=== PATIENT | female | born 1975 | race Caucasian/White ===

== ENCOUNTER → 2018-10-24 11:08 | Outpatient (CLI) | payer OTHER, SELFPAY | PROVIDERS: PCP Internal Medicine Adolescent Medicine; Visit Provider Internal Medicine Cardiovascular Disease | DX: R00.2 Palpitations (principal); R06.00 Dyspnea, unspecified; R06.83 Snoring; R07.9 Chest pain, unspecified; R40.0 Somnolence | CPT/HCPCS: 93270 ==

== ENCOUNTER → 2018-10-29 07:23 | Outpatient (CLI) | payer SELFPAY ==
--- NOTE | 2018-10-29 07:31 | CT_ITS ---
CT heart w calcium score INDICATION: ITS.REASON: cp/dyspnea ORDERING PHYSICIAN: Jerome Marks MD PATIENT AGE: 42 years COMPARISON: None TECHNIQUE: Contrast Used: Oral Contrast: Axial images were obtained. Sagittal and coronal reformatted images are reviewed as well. All CT scans at the facility use one or more dose reduction, viz: automated exposure control, ma/kV adjustment per patient size (including targeted exams where dose is matched to indication, i.e. head), or iterative reconstruction technique. FINDINGS: The coronary artery calcium score is 0. No identifiable calcific atherosclerotic plaque. There are scattered calcified nodules present in the right middle lobe and right upper lobe IMPRESSION: The coronary artery calcium score of 0. No identifiable atherosclerotic plaque, very low cardiovascular disease risk
== END ==
PROVIDERS: PCP Internal Medicine Adolescent Medicine; Visit Provider Internal Medicine Cardiovascular Disease
DX: R00.2 Palpitations (principal); R06.00 Dyspnea, unspecified; R06.83 Snoring; R07.9 Chest pain, unspecified; R40.0 Somnolence
CPT/HCPCS: 75571

== ENCOUNTER → 2018-11-04 15:47 | Outpatient (POV) | payer SELFPAY | PROVIDERS: Visit Provider Dermatology | DX: Z00.00 Encounter for general adult medical examination without abnormal findings (principal) ==

== ENCOUNTER → 2018-11-05 15:30 | Outpatient (CLI) | payer OTHER, SELFPAY | PROVIDERS: PCP Internal Medicine Adolescent Medicine; Visit Provider Internal Medicine Cardiovascular Disease | DX: R06.00 Dyspnea, unspecified (principal); R00.2 Palpitations; R06.83 Snoring; R07.9 Chest pain, unspecified; R40.0 Somnolence | CPT/HCPCS: 95806 ==

== ENCOUNTER → 2018-11-06 07:51 | Outpatient (CLI) | payer OTHER, SELFPAY ==
--- NOTE | 2018-11-06 | CA_ITS ---
APPROVED REPORT Exam: Exercise Treadmill Technologist: garcía thompson, Ht: 5 ft 3 in Wt: 157 lbs BSA: 1.74 m2 HR: 90 bpm Rhythm: NSR Indications: CP< SOB< Palpatations Medical History Medical History: Arrhythmia Medications: OmPERAZOLE,,,,, Allergies: No known drug allergies Stress Test Details Test: David HR Resting HR: 96 bpm Max Heart Rate (APMHR): 180 bpm Max HR Achieved: 170 bpm Target HR (85% APMHR): 153 bpm % of APMHR: 94 Recovery HR: 125 bpm BP Resting BP: 127.0/75.0 mmHg Max BP: 162.0/76.0 mmHg Recovery BP: 123.0/55.0 mmHg ECG Clinical Exercise duration: 09:21 min Highest Stage Achieved: Exercise capacity: 10.1 METs Stress ECG Conclusion Symptoms: No chest pain. Arrhythmias/ectopy: Rare pac. ST-T changes: Motion artifact with mild lateral ST depression at 6:[address] segments at peak HR/exercise. Stress echo images reported separately. Test Summary REST . . . . . . . Standing REST . . . . . . . Sitting REST 05:59 0.0 0.0 96 . 127/ 75 . . Stage 1 01:00 10.0 1.7 117 . . . . Stage 1 02:00 10.0 1.7 117 . . . . Stage 1 03:00 10.0 1.7 120 . 150/ 74 . . Stage 2 01:00 12.0 2.5 128 . . . . Stage 2 02:00 12.0 2.5 137 . . . . Stage 2 03:00 12.0 2.5 141 . 162/ 76 . . Stage 3 01:00 14.0 3.4 160 . . . . Stage 3 02:00 14.0 3.4 . . . . . Stage 3 . . . . . . . Stage held Stage 3 03:00 14.0 3.4 169 . . . . Stage 3 . . . . . . . Stage resumed Stage 3 03:21 14.0 0.0 170 . . . Stop exercise at 09:21 RECOVERY 01:00 0.0 0.0 125 . . . . RECOVERY 02:00 0.0 0.0 114 . . . . RECOVERY 03:00 0.0 0.0 112 . . . . RECOVERY 04:00 0.0 0.0 106 . . . . RECOVERY 05:00 0.0 0.0 106 . 123/ 55 . . RECOVERY 06:00 0.0 0.0 109 . 113/ 59 . . RECOVERY 07:00 0.0 0.0 109 . 113/ 57 . . RECOVERY 07:59 0.0 0.0 107 . 113/ 57 . . Electronically signed by : Jose M Dodd, 11/19/2018 11:44:39
--- NOTE | 2018-11-06 07:52 | CA_ITS ---
APPROVED REPORT Car Dumper Operator: Zaida Natarajan CARI Exercise stress echo: Indication for the test: Chest pain shortness of breath Procedure: Patient exercised on David protocol 9 minutes, resting heart rate was 90 bpm resting blood pressure 127/75, with exercise maximum heart rate achieved was 170 bpm which is equal to 94% of the maximum corrected heart rate and her blood pressure was 162/76. Test was stopped due to shortness of breath and fatigue patient denied any complaint of chest pain. Patient has good exercise capacity achieved 10.1 mets of workload on treadmill. The blood pressure response to exercise was adequate. Electrocardiogram: Resting electro cardiogram showed sinus rhythm, with exercise there is less than 1.[address] segment depression noted from the baseline EKG. The EKG portion of the exercise stress echo is negative for ischemia. Resting echocardiogram: Shows normal left ventricular size with the left ventricular systolic function, visually estimated ejection fraction of 55% with no regional wall motion abnormality. Stress echocardiogram: With exercise there is increase in contractility of all the segments of the myocardium with hyperdynamic left ventricular systolic response, no segmental wall motion abnormality with exercise seen to indicate ischemic heart disease. Conclusion 1. The EKG portion of the exercise stress echo is negative for ischemia, patient has good exercise capacity achieved 10.1 mets of workload on treadmill, the blood pressure response to exercise was adequate, there was no exercise-induced chest discomfort. 2. No echocardiographic evidence of segmental wall motion abnormality to suggest underlying ischemic heart disease. Preserved left ventricular systolic function. 3. Normal stress echo. Electronically signed by : Jerome Marks, 11/06/2018 14:49:22
== END ==
PROVIDERS: PCP Internal Medicine Adolescent Medicine; Visit Provider Internal Medicine Cardiovascular Disease
DX: R07.9 Chest pain, unspecified (principal); R06.00 Dyspnea, unspecified; R00.2 Palpitations; K21.9 Gastro-esophageal reflux disease without esophagitis; R06.83 Snoring; R40.0 Somnolence
CPT/HCPCS: 93017; 93350

== ENCOUNTER → 2019-01-08 20:07 | Outpatient (CLI) | payer OTHER, SELFPAY | PROVIDERS: PCP Internal Medicine Adolescent Medicine; Visit Provider Internal Medicine Cardiovascular Disease | DX: G47.33 Obstructive sleep apnea (adult) (pediatric) (principal); R40.0 Somnolence | CPT/HCPCS: 95810 ==

== ENCOUNTER → 2019-08-02 09:51 | Outpatient (CLI) | payer OTHER, SELFPAY ==
[2019-08-03 17:26] LABS: Covid-19 Nasal PCR Sendout UK Not Detected
== END ==
PROVIDERS: PCP Internal Medicine Adolescent Medicine; Visit Provider Surgery
DX: Z03.818 Encounter for observation for suspected exposure to other biological agents ruled out (principal)
CPT/HCPCS: U0003

== ENCOUNTER 2019-08-04 06:25 | Day surgery (SDC) | payer OTHER, SELFPAY ==
--- NOTE | 2019-07-30 12:49 | SUR.PREOP ---
07/30/2019 @ 1249--PHONE CALL MADE TO PATIENT. PATIENT UNDERSTANDS THAT LAB WORK AND COVID TESTING NEEDS TO BE COMPLETED 1000 ON 08/02/2019. PATIENT UNDERSTANDS IF LAB WORK AND COVID-19 TESTS ARE NOT COMPLETED BY 12PM ON THAT DATE, THE SURGERY SCHEDULED WILL BE CANCELLED AND RESCHEDULED FOR ANOTHER TIME.
[2019-08-03 11:59] VITALS: BMI 28.3
[2019-08-04 06:44] VITALS: BP 110/70; PULSE 72; RESP 18; TEMP 36.4; O2SAT 100
--- NOTE | 2019-08-04 07:06 | HMH.ANESCL ---
[facility] Anesthesia Checklist - Patient Identification Patient Identification: Arm Band - Structural Data Admitted From: Home Planned Operative Procedure/s: egd Consent for Planned Operative Procedure(s) Verified: Yes Verified Documents: Surgical Consent, History and Physical - NPO Status Verified Time NPO: 00:00 - Additional verifications Anesthesia Reactions: No - Airway Assessment C-Spine Mobility Assessed: Yes (mp2) TMJ Mobility Assessed: Yes Dentition: Good Dentition - Neurological Assessment Level of Consciousness: Awake, Alert - Anesthesia Plan Anesthesia Risk discussed: Yes Anesthesia Plan: Verified ASA Class: II Anesthesia Type: MAC [facility] History I have reviewed the patient's past medical history: Yes Medical History: Reports:: Gastroesophageal Reflux Disease(GERD), MRSA (c section incision), Palpitations Denies:: Cancer, Diabetes Mellitus Type 1, Diabetes Mellitus Type 2, Seizures *Have you ever received a pneumonia vaccine?: No *Have you received a flu vaccine this season?: Yes Anesthesia experience/problems:: nac Other Surgeries: Yes: Colonoscopy, , EGD, Tubal Ligation Amputation: No Fractures: No - *Social History Educational Level: Completed College Smoking Status: Never smoker Alcohol Intake: never Substance Use Type: denies use *Occupational Status:: employed Housing: house Household Members: spouse *Travel in the last 8 weeks: None Family Hx:: Heart Attack, Cancer
[2019-08-04 07:21] LABS: Urine Pregnancy, HCG Qual. Negative (Negative)
[2019-08-04 07:31] VITALS: O2SAT 100
[2019-08-04 07:45] VITALS: BP 106/63; PULSE 77; RESP 18; TEMP 36.1; O2SAT 99
--- NOTE | 2019-08-04 07:46 | HMH.GSHP ---
HPI HPI: Patient is a very pleasant 43-year-old female who presents back to the office for follow-up after her urgent upper endoscopy which was done on 04/08/2019 for esophageal obstruction/food impaction. 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 She does have a history of GERD and has had previous upper endoscopy at outside facility but never at this institution. She was found to have impacted meat during upper endoscopy done on 04/08/2019. Following that she was instructed to take yvke-inl-oyesehz proton pump inhibitors. She has had no symptomatology since then. Plan was for follow-up definitive diagnostic EGD. [facility] History I have reviewed the patient's past medical history: Yes Medical History: Reports:: Gastroesophageal Reflux Disease(GERD), MRSA (c section incision), Palpitations Denies:: Cancer, Diabetes Mellitus Type 1, Diabetes Mellitus Type 2, Seizures *Have you ever received a pneumonia vaccine?: No *Have you received a flu vaccine this season?: Yes Anesthesia experience/problems:: nac Other Surgeries: Yes: Colonoscopy, , EGD, Tubal Ligation Amputation: No Fractures: No - *Social History Educational Level: Completed College Smoking Status: Never smoker Alcohol Intake: never Substance Use Type: denies use *Occupational Status:: employed Housing: house Household Members: spouse *Travel in the last 8 weeks: None Family Hx:: Heart Attack, Cancer Review of Systems - Review of Systems Review of systems:: pertinent systems reviewed and negative unless documented below Meds Home Medications Medication Instructions Recorded Confirmed Type Omeprazole Magnesium [Prilosec Otc 20 mg PO DAILY 08/03/19 08/04/19 History 20mg Tab] Allergies Allergy/AdvReac Type Severity Reaction Status Date / Time No Known Allergies Allergy Verified 08/04/19 06:42 Exam Vital signs and Labs for Last 24 Hours: Temp Pulse Resp BP Pulse Ox 97.6 F 72 18 110/70 100 08/04/19 06:44 08/04/19 06:44 08/04/19 06:44 08/04/19 06:44 08/04/19 06:44 Laboratory Results - last 24 hr 08/04/19 : Urine HCG, Qual Negative I & O for Last 24 hours: Intake & Output 08/01/19 08/02/19 08/03/19 08/04/19 11:59 11:59 11:59 11:59 Weight 160 lb - *Routine HEENT Exam Head: Present: normocephalic Eye: Present: EOMI, PERRL ENT: Present: mucous membranes moist - *Routine Neck Exam Present: supple. Absent: lymphadenopathy - *Routine Respiratory Exam Present: CTA bilaterally - *Routine Cardiovascular Exam Present: RRR - *Routine Abdominal Exam Present: soft, normoactive bowel sounds. Absent: tenderness - *Routine Extremities Exam Absent: cyanosis, clubbing, edema - *Routine Skin Exam Present: warm. Absent: rash - *Routine Neurological Exam Present: alert, oriented X3 Results - Results Lab Results Last 24 Hours:: Laboratory Results - last 24 hr 08/04/19 : Urine HCG, Qual Negative Assessment and Plan - Assessment and plan all Dx Assessment and Plan for all problems:: Plan for follow-up upper endoscopy with possible dilatation and biopsies
--- NOTE | 2019-08-04 07:47 | HMH.SCOPE ---
- Procedure: Date: 08/04/19 Procedure Performed:: Esophagogastroduodenoscopy with dilatation to 20 mm and biopsies Indications:: Patient is a very pleasant 43-year-old female who presents back to the office for follow-up after her urgent upper endoscopy which was done on 04/08/2019 for esophageal obstruction/food impaction. 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 She does have a history of GERD and has had previous upper endoscopy at outside facility but never at this institution. She was found to have impacted meat during upper endoscopy done on 04/08/2019. Following that she was instructed to take [id number]-wrddqzh proton pump inhibitors. She has had no symptomatology since then. Plan was for follow-up definitive diagnostic EGD. Performing Provider:: Edward Martinez MD Referring Provider:: None Sedation:: Propofol Procedure:: Patient was taken to endoscopy procedure room. She was positioned in a lateral decubitus position. Adequate intravenous sedation was achieved with anesthesia titration of propofol. Olympus endoscope was inserted via the oropharynx. The distal esophagus she did have a small Schatzki's ring. Stomach was cannulated and insufflated. Retroflexion revealed a small sliding hiatal hernia. There were a few fundic gland polyps. She had some minor focal gastritis in the mid body of the stomach. Pylorus was traversed. Duodenum was unremarkable. Endoscope was withdrawn into the stomach and gastric antral mucosal biopsy was obtained for CLOtest for H. pylori. Biopsy was obtained of the focal gastritis. Biopsies were obtained at the gastroesophageal junction at the region of the Schatzki's ring. Following this the mild Schatzki's ring was dilated sequentially to 18 mm, then 19 mm, then 20 mm using the pneumatic dilator. Stomach was desufflated and the endoscope was withdrawn. Findings:: Minor Schatzki's ring Sliding hiatal hernia Focal nonerosive gastritis Recommendations:: Plan to check the status of H. pylori and treat if appropriate. Otherwise would maintain H2 blockers versus proton pump inhibitors. Complications:: None immediately apparent Estimated blood obtained (mL): 2
[2019-08-04 07:55] VITALS: BP 105/71; PULSE 82; RESP 18; TEMP 36.1; O2SAT 100
[2019-08-04 08:05] VITALS: BP 101/64; PULSE 80; RESP 18; TEMP 36.1; O2SAT 100
[2019-08-04 08:15] VITALS: BP 112/56; PULSE 79; RESP 18; TEMP 36.1; O2SAT 100
== END 2019-08-04 08:15 | disposition home or self-care (01) ==
LOC: OUTP 06:26
PROVIDERS: PCP Internal Medicine Adolescent Medicine; Visit Provider Surgery
PROC: 0DJ08ZZ Inspection of Upper Intestinal Tract, Via Natural or Artificial Opening Endoscopic (ICD-10-PCS; CPT 43235; principal; 2019-08-04 07:30)
DX: K21.9 Gastro-esophageal reflux disease without esophagitis (principal); K22.2 Esophageal obstruction; K44.9 Diaphragmatic hernia without obstruction or gangrene; K29.60 Other gastritis without bleeding
CPT/HCPCS: 43239; 43249; 81025; 87339; C1726

== ENCOUNTER → 2019-10-28 16:28 | Outpatient (CLI) | payer OTHER, SELFPAY ==
[2019-10-28 18:49] LABS: Free Thyroxine Index 2.3 ug/dL (5.93-13.13); T4 (Thyroxine) 6.9 ug/dl (5.53-11.0); Triiodothryronine (T3) Uptake 33 % (23.5-40.5)
[2019-10-28 19:03] LABS: Thyroid Stimulating Hormone 0.93 uIU/mL (0.465-4.68)
== END ==
PROVIDERS: Visit Provider Internal Medicine Adolescent Medicine
DX: E04.1 Nontoxic single thyroid nodule (principal)
CPT/HCPCS: 36415; 84436; 84443; 84479

== ENCOUNTER → 2019-11-06 07:45 | Outpatient (CLI) | payer OTHER, SELFPAY ==
--- NOTE | 2019-11-06 08:10 | US_ITS ---
PROCEDURE: US THYROID CLINICAL INDICATION: THYROID NODULE COMPARISON: No exams were available for comparison FINDINGS: Right lobe: The right lobe measures 1.8 x 4.6 x 1.8 cm. There is a somewhat spongy form hypoechoic nodule lower pole measuring 1.3 by 1.3 by 1.2 cm. This nodule is a wider than high with rather smooth well-defined borders and with no calcifications. It is somewhat vascular. The remainder of the right lobe shows homogeneous echogenicity. This is a Ti rads 2. Left lobe: The left lobe measures 1.1 x 4.3 x 1.6 cm. The left lobe shows homogeneous echogenicity. There are no cystic or solid nodule seen. Isthmus: The isthmus measures 0.32 cm. Additional findings: IMPRESSION: Normal-sized gland with dominant somewhat hypoechoic noduleTirads 2 Dictated by: Dr. Venkat Alfonso MD 11/06/2019 10:05 Dr. Venkat Alfonso MD in [place] 11/06/2019 10:05
== END ==
PROVIDERS: PCP Internal Medicine Adolescent Medicine; Visit Provider Internal Medicine Adolescent Medicine
DX: E04.1 Nontoxic single thyroid nodule (principal)
CPT/HCPCS: 76536

== ENCOUNTER 2019-12-02 21:30 | Emergency (ER) | payer OTHER, SELFPAY ==
[2019-12-02 21:41] VITALS: BMI 28.5
[2019-12-02 21:42] VITALS: BP 137/77; PULSE 107; RESP 14; TEMP 36.8; O2SAT 100; BMI 28.5
--- NOTE | 2019-12-02 21:42 | XR_ITS ---
PROCEDURE: XR KNEE LT 3V CLINICAL INDICATION: fall Posttraumatic pain COMPARISON: No exams were available for comparison FINDINGS: No fracture or dislocation. No lytic or blastic change. There is normal mineralization. The joint spaces are well-preserved. No significant degenerative/arthritic changes. No erosive changes evident. Other findings:There is a prominent suprapatellar effusion IMPRESSION: Knee joint effusion otherwise negative Dictated by: John Gibbons MD 12/03/2019 05:42 John Gibbons MD in [place] 12/03/2019 05:42
[2019-12-02 22:18] VITALS: BP 122/70; PULSE 89; RESP 18; O2SAT 99
--- NOTE | 2019-12-02 23:31 | HMH.EDLOEX ---
ED Disposition Clinical Impression: Sprain of left knee Qualifiers: Encounter type: initial encounter Involved ligament of knee: unspecified ligament Qualified Code(s): S83.92XA - Sprain of unspecified site of left knee, initial encounter Disposition: Home, Self-Care Condition on Discharge: Fair Instructions: Sprain Additional Instructions: X rays of the knee showed no acute findings; You have abrasion of both knees; plan is to provide you with crutches, a tetanus shot, Toradol and Depo-Medrol here and also an Phuc bandage; will keep you off work for couple of days; Please follow-up with orthopedics Prescriptions: Ibuprofen [Motrin 600mg Tablet] 600 mg PO Q6HP PRN #20 tab PRN Reason: Mild To Moderate Pain Transmission Status: Pending to [facility] Diclofenac Sodium [Voltaren 100gm Topical Gel] 1 applicatio TP Q4-6H PRN #100 gm PRN Reason: Moderate Pain Transmission Status: Pending to [facility] Referrals: Nasir rFeire MD [Primary Care Provider] - Forms: Work/School Release Time of Disposition: 23:46 - Critical Care Critical Care Time: No Attestation: On 12/02/19, the high probability of a clinically significant, sudden or life threatening deterioration of the following system(s) required my full and direct attention, intervention and personal management. The time I documented below is in addition to time spent performing reported procedures but includes the following listed in this critical care notation. Medical Decision Making - Medical Records Medical records reviewed: Yes: I reviewed the patient's medical records. 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 Patient reports left knee pain. The knee showed no acute findings she does have a an abrasion of both knees; plan is to provide her with crutches, a tetanus shot, Toradol and Depo-Medrol here and also an Phuc bandage; will keep her off work for couple of days advised to follow-up with orthopedics - Brian Inquiry Pt receiving controlled substance: No Vital Signs: 12/02/19 21:42 12/02/19 22:18 Temperature 98.3 F Temperature Source Oral Pulse Rate [Right Brachial] 107 H 89 Respiratory Rate 14 18 Blood Pressure [Right Arm] 137/77 122/70 Blood Pressure Mean [Right Arm] 97 87 Blood Pressure Source [Right Arm] Automatic Cuff Blood Pressure Position [Right Arm] Sitting 02 Sat by Pulse Oximetry 100 99 Oxygen Delivery Method Room Air Orders (Tests/Meds): ORDERS Category Date Time Status Knee XR left 3 views [XR knee LT 3V] Stat Exams 12/02/19 21:42 Taken - Radiology Data #1 Image(s): Knee Image Reviewed: Yes I reviewed the patient's radiology image Preliminary Findings: Normal/NAD No acute findings of the left knee is seen Lower Extremity Injury HPI - General Chief Complaint: Extremity Injury, Lower Stated Complaint: O [id number] fell injured L Knee Time Seen by Provider: 12/02/19 23:15 Mode of Arrival: Wheelchair Source of Information: Patient Limitations: No Limitations Description of Symptoms (Recalled from ER Triage Doc. 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 Patient reports left knee pain. - History of Present Illness HPI Narrative: Patient reports she was cleaning when she triped and landed on all fours on concrete. Patient reports left knee pain. MD complaint: knee injury Onset (ago): hour(s) Injury: Left: knee Type of Injury: other Place: home Severity: mild Severity scale (1-10): 2 Relieving factors: rest Exacerbating factors: movement Context: fall - Related Data Home Medications Medication Instructions Recorded Confirmed Omeprazole Magnesium [Prilosec Otc 20 mg PO DAILY 08/03/19 11/23/19 20mg Tab] albuterol sulfate 90 mcg/actuation INHALATION 11/23/19 11/23/19 aerosol inhaler Previous Rx's Medication Instructions Recorded Diclofenac Sodium [Voltare
[2019-12-02 23:41] VITALS: BP 135/83; PULSE 84; RESP 16; TEMP 36.8; O2SAT 100
== END 2019-12-03 00:03 | disposition home or self-care (01) ==
PROVIDERS: Emergency Provider Emergency Medicine; PCP Internal Medicine Adolescent Medicine
DX: S83.92XA Sprain of unspecified site of left knee, initial encounter (principal); W01.0XXA Fall on same level from slipping, tripping and stumbling without subsequent striking against object, initial encounter; Y92.89 Other specified places as the place of occurrence of the external cause; Z23 Encounter for immunization; K21.9 Gastro-esophageal reflux disease without esophagitis
CPT/HCPCS: 73562; 90471; 90714; 96372; 99283; J1040

== ENCOUNTER → 2020-02-23 12:41 | Outpatient (CLI) | payer OTHER, SELFPAY ==
--- NOTE | 2020-02-23 13:01 | US_ITS ---
PROCEDURE: US THYROID CLINICAL INDICATION: thyroid nodule follow up-hypervascular nodule still seen right lower lobe COMPARISON: US US THYROID from 11/06/2019 FINDINGS: Right lobe: 1.6cm x 4.4cm x 1.5cm Left lobe: 1.0cm x 4.2cm x 1.9cm Isthmus: Unremarkable Additional findings: There is a persistent spongiform nodule in the lower pole on the right measuring 1.5 x 1.1 cm not significantly changed which is a TR level 2 nodule. A small hypoechoic nodules present in the mid aspect of the right lobe unchanged. IMPRESSION: No change right-sided thyroid nodules Dictated by: John Gibbons MD 02/24/2020 12:30 John Gibbons MD in [place] 02/24/2020 12:30
[2020-02-23 16:16] LABS: Free T4 (Free Thyroxine) 1.01 ng/dl (0.78-2.19)
[2020-02-23 16:29] LABS: Thyroid Stimulating Hormone 1.79 uIU/mL (0.465-4.68)
[2020-02-26 20:14] LABS: Calcitonin <2.0 pg/mL (0.0-5.0)
== END ==
PROVIDERS: PCP Internal Medicine Adolescent Medicine; Visit Provider Otolaryngology
DX: E04.1 Nontoxic single thyroid nodule (principal)
CPT/HCPCS: 36415; 76536; 82308; 84439; 84443

== ENCOUNTER → 2020-02-24 15:54 | Outpatient (CLI) | payer OTHER, SELFPAY ==
--- NOTE | 2020-02-24 15:55 | MM_ITS ---
PROCEDURE: MM DIG SCREENING MAMM BI W/CAD Referring Doctor: Nasir Freire Patient Age:44Y CLINICAL INDICATION: SCREENING No hormones. No new complaints. Noncontributory family history the COMPARISON: MG MY Digital Screen BILAT from 05/16/2017 outside studies from [facility] TECHNIQUE: Standard CC and MLO images were obtained. R2 CAD reviewed. Bilateral digital breast tomosynthesis included.. Additional axillary CC views both breast included FINDINGS: CAD computer review highlights no areas of concern. The the the the the the the she Patchy moderately heterogeneous fibroglandular elements most evident distributed towards upper-outer quadrant both breast, again seen with no significant new findings. No new dominant nor suspicious density/mass Right breast no new findings of concern Left breast no new findings of concern IMPRESSION: Stable bilateral mammogram. No new areas of concern. Heterogeneous moderately dense breast pattern is similar to outside studies. Follow-up 1 year adequate BI-RAD Category: 2 Benign Finding(s) t FOLLOW-UP: 1YR 1 Year Follow-up the (A letter has been sent to the patient regarding results of the study.) Dictated by: Ata Brody MD 03/03/2020 12:48 Ata Brody MD in [place] 03/03/2020 12:48
== END ==
PROVIDERS: PCP Internal Medicine Adolescent Medicine; Visit Provider Internal Medicine Adolescent Medicine
DX: Z12.31 Encounter for screening mammogram for malignant neoplasm of breast (principal)
CPT/HCPCS: 77063; 77067

== ENCOUNTER → 2020-06-22 12:50 | Outpatient (CLI) | payer OTHER, SELFPAY ==
--- NOTE | 2020-06-22 12:59 | US_ITS ---
PROCEDURE: US THYROID CLINICAL INDICATION: nodule COMPARISON: US US THYROID from 11/06/2019 US US THYROID from 02/23/2020 FINDINGS: Right lobe: 4.5 x 1.4 x 1.4 centimeters Left lobe: 4 x 1 x 1.7 centimeters Isthmus: 0.3 centimeters Additional findings: Nodule is noted in the right lobe of thyroid gland measuring 0.3 centimeters, unchanged. Hypoechoic nodule in the right lobe measuring 1.3 times 1.4 x 1.1 centimeters noted, demonstrates well-defined margins and vascularity. No intersegmental interval change compared to prior study. No nodules are identified in the left lobe. IMPRESSION: Right thyroid nodule measuring 1.3 x 1.4 centimeters, demonstrates no significant interval change. Follow-up in 6-12 months is recommended. Dictated by: Barbara Rocha 06/23/2020 11:27 Barbara Rocha in [place] 06/23/2020 11:27
== END ==
PROVIDERS: PCP Internal Medicine Adolescent Medicine; Visit Provider Otolaryngology
DX: E04.1 Nontoxic single thyroid nodule (principal); E04.9 Nontoxic goiter, unspecified
CPT/HCPCS: 76536

== ENCOUNTER → 2021-01-06 13:48 | Outpatient (CLI) | payer OTHER, SELFPAY ==
--- NOTE | 2021-01-06 14:04 | US_ITS ---
PROCEDURE: US THYROID CLINICAL INDICATION: thyroid nodule COMPARISON: US US THYROID from 11/06/2019 US US THYROID from 02/23/2020 US US THYROID from 06/22/2020 FINDINGS: Right lobe: The right lobe is 4.6 x 1.6 x 1.7 cm. There is a dominant spongiform nodule in the right lobe at 1.4 x 1.3 cm not significantly changed TR level 2. A 3 mm hypoechoic nodules present in the upper pole unchanged. Left lobe: 4.1 x 1 x 1.6 cm. Homogeneous echogenicity with no distinct nodule. Isthmus: Unremarkable Additional findings: IMPRESSION: Stable ultrasound appearance of the dominant nodule on the right having a spongiform appearance. This is stable dating back to 11/06/2019. Annual follow-up suggested Dictated by: John Gibbons MD 01/06/2021 16:29 John Gibbons MD in [place] 01/06/2021 16:29
== END ==
PROVIDERS: PCP Internal Medicine Adolescent Medicine; Visit Provider Otolaryngology
DX: E04.1 Nontoxic single thyroid nodule (principal)
CPT/HCPCS: 76536

== ENCOUNTER → 2021-03-21 16:05 | Outpatient (CLI) | payer OTHER, SELFPAY ==
--- NOTE | 2021-03-21 16:14 | MM_ITS ---
PROCEDURE INFORMATION: Exam: MG Bilateral Screening 3D Mammography Exam date and time: 03/21/2021 4:14 PM Age: 45 years old Clinical indication: Screening mammogram TECHNIQUE: Imaging protocol: Bilateral screening tomosynthesis and 2D mammography including computer-aided detection (CAD) when performed. COMPARISON: 1. MG MM DIG SCREENING MAMM BI W/CAD 02/24/2020 3:56 PM 2. MG MY Digital Screen BILAT 05/16/2017 2:19 PM FINDINGS: MAMMOGRAPHY: Breast composition: The breast tissue is heterogeneously dense, which may obscure small masses. Mass: None. Architectural distortion: No new or suspicious architectural distortion. Calcifications: No new or suspicious calcifications are present Asymmetric density: No new or suspicious asymmetric density is present Skin thickening: None. Axillary adenopathy: None. IMPRESSION: No mammographic evidence of malignancy. Recommend annual screening mammography unless otherwise clinically indicated. ASSESSMENT: BI-RADS category 1: Negative
== END ==
PROVIDERS: PCP Internal Medicine Adolescent Medicine; Visit Provider Internal Medicine Adolescent Medicine
DX: Z12.31 Encounter for screening mammogram for malignant neoplasm of breast (principal)
CPT/HCPCS: 77063; 77067

== ENCOUNTER → 2022-04-05 16:14 | Outpatient (CLI) | payer OTHER, BC, SELFPAY ==
--- NOTE | 2022-04-05 16:18 | MM_ITS ---
PROCEDURE INFORMATION: Exam: MG Bilateral Screening 3D Mammography Exam date and time: 04/05/2022 4:08 PM Age: 46 years old Clinical indication: Screening. No family history of breast cancer. TECHNIQUE: Imaging protocol: Bilateral Screening tomosynthesis and 2D mammography including computer-aided detection (CAD) when performed. COMPARISON: 1. MG MM DIG SCREENING MAMM BI W/CAD 03/21/2021 4:33 PM 2. MG MM DIG SCREENING MAMM BI W/CAD 02/24/2020 3:56 PM 3. MG MY Digital Screen BILAT 05/16/2017 2:19 PM FINDINGS: MAMMOGRAPHY: Breast composition: The breasts are heterogeneously dense, which may obscure small masses. Mass: No suspicious mass. Architectural distortion: None. Calcifications: No suspicious calcifications. Asymmetric density: None. Skin thickening: None. Axillary adenopathy: None. IMPRESSION: No mammographic evidence of malignancy. Annual screening is recommended unless otherwise clinically indicated. ASSESSMENT: BI-RADS Category 1: Negative
== END ==
PROVIDERS: PCP Internal Medicine Adolescent Medicine; Visit Provider Internal Medicine Adolescent Medicine
DX: Z12.31 Encounter for screening mammogram for malignant neoplasm of breast (principal)
CPT/HCPCS: 77063; 77067

== ENCOUNTER → 2022-05-11 14:13 | Outpatient (CLI) | payer OTHER, BC, SELFPAY ==
--- NOTE | 2022-05-11 14:56 | US_ITS ---
FINAL REPORT TECHNIQUE: Sonographic images of the thyroid gland were obtained in the longitudinal and transverse planes. CLINICAL HISTORY: nodule COMPARISON: 01/06/2021 FINDINGS: The right lobe measures 1.4 x 5.0 x 1.5 cm cm. There are several nodules in the right lobe. There is a mixed cystic and solid lower pole nodule measuring 1.4 cm which is unchanged. There is a smaller upper pole nodule measuring 4 mm and was 3 mm, unchanged. The left lobe measures 1.3 x 4.6 x 1.3 cm. There is a tiny colloid cyst. The isthmus measures 3 mm. This is normal. IMPRESSION: Stable bilateral thyroid nodules. Reviewed, Interpreted and Dictated by Ama Saxena MD Transcribed by Dorys Dunn Authenticated and . [facility]
[2022-05-11 16:29] LABS: Free T4 (Free Thyroxine) 0.98 ng/dl (0.78-2.19)
[2022-05-11 16:43] LABS: Thyroid Stimulating Hormone 0.73 uIU/mL (0.465-4.68)
== END ==
PROVIDERS: PCP Internal Medicine Adolescent Medicine; Visit Provider Otolaryngology
DX: E04.1 Nontoxic single thyroid nodule (principal)
CPT/HCPCS: 36415; 76536; 84439; 84443

== ENCOUNTER 2023-04-08 16:05 | Outpatient (CLI) | payer OTHER, SELFPAY ==
--- NOTE | 2023-04-08 16:05 | MM_ITS ---
PROCEDURE INFORMATION: Exam: MG Bilateral Screening 3D Mammography Exam date and time: 04/08/2023 3:52 PM Age: 47 years old Clinical indication: Screening mammogram TECHNIQUE: Imaging protocol: Bilateral Screening tomosynthesis and 2D mammography including computer-aided detection (CAD) when performed. COMPARISON: 1. MG MM DIG SCREENING MAMM BI W/CAD 04/05/2022 4:08 PM 2. MG MM DIG SCREENING MAMM BI W/CAD 03/21/2021 4:33 PM 3. MG MM DIG SCREENING MAMM BI W/CAD 02/24/2020 3:56 PM 4. MG MY Digital Screen BILAT 05/16/2017 2:19 PM FINDINGS: MAMMOGRAPHY: Breast composition: There are scattered areas of fibroglandular density. Mass: None. Architectural distortion: No new or suspicious architectural distortion. Calcifications: No new or suspicious calcifications are present Asymmetric density: No new or suspicious asymmetric density is present Skin thickening: None. Axillary adenopathy: None. IMPRESSION: No mammographic evidence of malignancy. Recommend annual screening mammography unless otherwise clinically indicated. ASSESSMENT: BI-RADS category 1: Negative
== END 2023-04-08 23:59 ==
LOC: RAD 16:05
PROVIDERS: PCP Family Medicine; Visit Provider Family Medicine
DX: Z12.39 Encounter for other screening for malignant neoplasm of breast (principal)
CPT/HCPCS: 77063; 77067

== ENCOUNTER 2023-07-08 08:32 | Outpatient (CLI) | payer OTHER, SELFPAY ==
--- NOTE | 2023-07-08 08:32 | US_ITS ---
FINAL REPORT CLINICAL HISTORY: RUQ pain FINDINGS: ULTRASOUND RIGHT UPPER QUADRANT Sonographic imaging of the right upper quadrant was obtained. The pancreas is partially obscured. The liver is unremarkable. There are multiple echogenic shadowing gallstones in the gallbladder. There is no gallbladder wall thickening. There is no biliary ductal dilatation. The common duct is normal at 4 mm. There are benign appearing cysts in the right kidney measuring up to 1.5 cm. IMPRESSION: Gallstones in the gallbladder. Benign appearing cysts in the right kidney. Reviewed, Interpreted and Dictated by Hank Eden MD Transcribed by Justina Rangel Authenticated and [facility]
== END 2023-07-08 23:59 | disposition home or self-care (01) ==
LOC: RAD 08:32
PROVIDERS: PCP Family Medicine; Visit Provider Surgery
DX: R10.11 Right upper quadrant pain (principal)
CPT/HCPCS: 76705

== ENCOUNTER 2023-08-16 09:23 | Day surgery (SDC) | payer OTHER, SELFPAY ==
[2023-08-13 14:09] VITALS: BMI 29.4
[2023-08-16] VITALS (11 sets, daily range): BP systolic 106–129; BP diastolic 60–77; PULSE 82–99; RESP 16–18; TEMP 36.3–36.6; O2SAT 97–100; BMI 29.4
[2023-08-16] MEDS: LACTATED RINGERS 1000ML 1,000 ML 25 ML IV (09:50)
--- NOTE | 2023-08-16 11:25 | EXP.GEN.HP ---
HPI HPI HPI: Patient presents for EGD & colonoscopy. She is a pleasant 47-year-old female whom I had seen in the past after she had esophageal obstruction secondary to food impaction requiring urgent endoscopy. This was on 04/08/2019. I did do a follow-up EGD on 08/04/2019 which revealed minor Schatzki's ring which was dilated sequentially using the TTS balloon dilator to 20 mm. She states that over approximately the past year she has had some symptoms similar to before. She does describe substernal pain which she feels is likely consistent with esophageal spasms occurring after eating. She usually within several minutes. She often has to regurgitate saliva. She does state that she had checked an ultrasound and noted that she had gallstones. Of note, she has a family history of colon cancer in her father who was in his 50s when diagnosed. She has not had a colonoscopy for at least [address] [facility] Disclaimer: The information contained in this section may have been updated after the patient was seen, as this information can be updated by other users. Medical History Mild Acid Reflux Hemorrhoids Thyroid Nodule Sprain of left knee Esophageal foreign body URI (upper respiratory infection) Somnolence, daytime Palpitations Dyspnea Snoring Chest pain Surgical History History of colonoscopy History of esophagogastroduodenoscopy (EGD) History of tubal ligation Family History Father Cancer Stroke Hypertension Hyperlipidemia Mother Stroke Hypertension Hyperlipidemia Social History Smoking Status: Never smoker alcohol intake: never substance use type: denies use current occupational status: employed Travel in the last 8 weeks: None household members: spouse housing: house current occupation: [employer] current occupational exposures/hazards: No caffeine: Yes Meds Home Medications and Allergies Home Medications Medication Instructions Recorded Confirmed Type No Known Home Medications 08/16/23 08/16/23 History New Prescriptions to Start Prescriptions: Allergies Allergy/AdvReac Type Severity Reaction Status Date / Time No Known Allergies Allergy Verified 08/16/23 09:38 Exam Data for Last 24 hours Vital signs and Labs for Last 24 Hours: Temp Pulse Resp BP Pulse Ox O2 Del Method 97.3 F L 99 H 18 123/77 100 Room Air 08/16/23 09:43 08/16/23 09:43 08/16/23 09:43 08/16/23 09:43 08/16/23 09:43 08/16/23 09:43 I & O for Last 24 hours: Intake & Output 08/13/23 08/14/23 08/15/23 08/16/23 11:59 11:59 11:59 11:59 Weight 166 lb 166 lb Constitutional Constitutional: no acute distress *Routine HEENT Exam Head: Present normocephalic Eye: Present EOMI and PERRL ENT: Present mucous membranes moist *Routine Neck Exam Neck: Present supple; Absent lymphadenopathy *Routine Respiratory Exam Respiratory: Present CTA bilaterally *Routine Cardiovascular Exam Cardiovascular: Present RRR *Routine Abdominal Exam Abdominal: Present soft and normoactive bowel sounds; Absent tenderness *Routine Rectal Exam Rectal:: deferred *Routine Genitalia Exam Genitalia:: deferred *Routine Extremities Exam Extremities: Absent cyanosis, clubbing or edema *Routine Skin Exam Skin: Present warm; Absent rash *Routine Neurological Exam Neurological: Present alert and oriented X3 Assessment and Plan *Assessment and plan (1) Chest pain: Status: Acute Qualifiers: Chest pain type: unspecified Qualified Code(s): R07.9 - Chest pain, unspecified Category: Medical Code(s): R07.9 - Chest pain, unspecified Plan Plan to proceed with EGD and colonoscopy. Potential that some of her symptoms may be secondary to gallstones.
--- NOTE | 2023-08-16 11:41 | HMH.SCOPE ---
Procedure: Date: 08/16/23 Patient Date of :: 1975 Procedure Performed:: 1. Esophagogastroduodenoscopy with biopsies and dilatation to 18 mm 2. Total colonoscopy . Indications:: Patient presents for EGD and colonoscopy. She is a pleasant 47-year-old female from [place] who is employee at [employer]. She has a history of dysphagia and GERD. She had presented with symptoms of esophageal obstruction/food impaction and underwent emergent upper endoscopy on 04/08/2019. At that time she had extraction of food. She did have follow-up endoscopy which I performed on 08/04/2019 and there were findings of Schatzki's ring which was dilated to 20 mm. She did have a small sliding hiatal hernia. Over the past year she has had progressive symptoms similar as before. She describes substernal pain consistent with esophageal spasms occurring after eating within several minutes. She often has to regurgitate. Patient did perform ultrasound and she was noted to have gallstones. I did have her undergo confirmatory ultrasound for gallstones. Patient does state that she has a family history of colon cancer in her father who was in his 50s when diagnosed. She has not had a colonoscopy for at least 12 years. Plan was made to proceed with upper endoscopy for symptoms of dysphagia and colonoscopy due to family history. . Performing Provider:: Edward Martinez MD Referring Provider:: Tez Rosario MD Sedation:: MAC sedation . Procedure:: Patient history was obtained and appropriate physical examination was performed. Patient's medications and allergies were reviewed. Informed consent was obtained after explaining the benefits, alternatives, and risks of the procedure including, but not limited to, bleeding, perforation, missed lesions, and adverse reaction to anesthesia medications. Patient was transported to endoscopy procedure room. Patient was connected to monitoring devices. Throughout the procedure the patient's blood pressure, pulse, and oxygen saturations were monitored continuously. Patient identification and planned procedure were verified by the staff. Attention was first turned to upper endoscopy. Olympus endoscope was inserted via the oropharynx. Esophagus was cannulated. Endoscope was advanced. Gastroesophageal junction was encountered at approximately 35 cm from the incisors. There was some minimal Schatzki's ring luminal narrowing. Endoscope was advanced into the stomach. Retroflexion revealed minuscule sliding hiatal hernia. There were a few fundic gland polyps. There was minor gastropathy. Pylorus was traversed. Endoscope was advanced to the duodenal sweep which appeared unremarkable. Biopsy was obtained in the duodenal bulb where there appeared to be possibly some minor nonerosive focal duodenitis. There was some prominent mucosa in the prepyloric location which was biopsied. Gastric antral biopsy was obtained for histopathologic analysis and H. pylori assessment. Biopsy was obtained of presumed fundic gland polyp. A couple biopsies were obtained at the gastroesophageal junction to assess for possible Almaguer's esophagus. Given her symptomatology plan was then made to proceed with dilatation. TTS pneumatic dilator balloon was inserted and inflated to 18 mm. Consideration was being given for sequential dilatation to 19 and 20 mm. However, the balloon was deflated to allow for repositioning and there appeared to be some irritation and possibly some minor mucosal rent. Therefore additional dilatation was not performed and the balloon was removed. Stomach was desufflated and the endoscope was withdrawn. Plan was then made to proceed with colonoscopy. Patient was positioned in lateral decubitus position. Digital anorectal exam was performed. Variable stiffness Olympus colonoscope was inserted and advanced under direct visualization to the cecum. Adequacy of the colonic preparation was noted. There was some particulate liquid stool throughout the colon. However, in the right colon there was some formed stool and viscous thick stool coating the melgoza which was unable to be cleared. Therefore thorough colonoscopic investigation for small polyps was not possible. The colonoscope was then slowly withdrawn while carefully examining the color, texture, anatomy, and integrity of the mucosoa circumferentially. There were potentially a couple of hyperplastic rectosigmoid polyps but these were not biopsied due to the patient requiring a follow-up colonoscopy. . Findings:: Mucosal narrowing at the gastroesophageal junction Gastroesophageal junction at 35 cm Mild diffuse nonerosive gastropathy Fundic gland polyps Poor colonic preparation . Recommendations:: I will assist her upper GI system with imaging post procedure. She will need rescheduled for repeat colonoscopy with more thorough bowel prep. May require several interval endoscopies with sequential dilatation. . Complications:: None immediately apparent Estimated blood obtained (mL): 2 Colonoscopy Component Colonoscopy Component Was a colonoscopy performed during today's procedure?: Yes Recommended follow up colonoscopy of at least 10 years?: No If no, follow up colonoscopy recommended in ___ years?: See above Reason for not recommending >/= 10 yr follow-up interval?: See above
--- NOTE | 2023-08-16 11:42 | EXP.ANES.CKL ---
[facility] Disclaimer: The information contained in this section may have been updated after the patient was seen, as this information can be updated by other users. Medical History Mild Acid Reflux Hemorrhoids Thyroid Nodule Sprain of left knee Esophageal foreign body URI (upper respiratory infection) Somnolence, daytime Palpitations Dyspnea Snoring Chest pain Surgical History History of colonoscopy History of esophagogastroduodenoscopy (EGD) History of tubal ligation Family History Father Cancer Stroke Hypertension Hyperlipidemia Mother Stroke Hypertension Hyperlipidemia Social History Smoking Status: Never smoker alcohol intake: never substance use type: denies use current occupational status: employed Travel in the last 8 weeks: None household members: spouse housing: house current occupation: [employer] current occupational exposures/hazards: No caffeine: Yes [employer] Anesthesia Checklist Patient Identification Patient Identification: Arm Band, Family and Verbal (Name & ) Structural Data Admitted From: Home Planned Operative Procedure/s: EGD/Colonoscopy Consent for Planned Operative Procedure(s) Verified: Yes Verified Documents: Surgical Consent and History and Physical NPO Status Verified Time NPO: 23:30 Chart Verification Results Verified: CBC, BMP and ECG Additional verifications Patient : No Anesthesia Reactions: No Cardiovascular Assessment Heart Sounds: S1 & S2 Pulse Rhythm: Irregular Peripheral Edema: No Airway Assessment Mallampati Score:: Class II C-Spine Mobility Assessed: Yes (FROM) TMJ Mobility Assessed: Yes Dentition: Good Dentition (Nothing loose per pt.) Neurological Assessment Level of Consciousness: Awake, Alert, Appropriate and Follows Commands Hx Seizures: No Numbness or tingling in extremities: No Anesthesia Plan Anesthesia Risk discussed: Yes Anesthesia Plan: Verified ASA Class: II Anesthesia Type: MAC
--- NOTE | 2023-08-16 12:32 | EXP.ANES.I ---
[facility] Anesthesia Record Part I Anesthesia Record I Intake, IV Amount: 600 Hydration: Adequate Estimated blood loss (mL): 5 Urine output (mL): 0 Blood Products used (#): none Blood Pressure: 116/69 SaO2: 97 Pulse Rate: 94 Airway Patency: Patent Respiratory Rate: 16 Temperature: 97.8 F Patient is:: Awake and Stable Stable to PACU at:: 12:35
--- NOTE | 2023-08-16 12:34 | CT_ITS ---
FINAL REPORT TECHNIQUE: Axial images through the chest were performed by computed tomography. This study was performed with techniques to keep radiation doses as low as reasonably achievable, (ALARA). Individualized dose reduction techniques using automated exposure control or adjustment of mA and/or kV according to the patient's size were employed. CLINICAL HISTORY: ESOPHAGEAL STRICTURE, EVAL FOR PERFORATION gastroview used COMPARISON: None FINDINGS: The lungs are clear. There is a small amount of contrast present in the esophagus. There are calcified hilar and subcarinal nodes. In this patient with a history of an esophageal stricture and potential perforation, there is no evidence of a leak of contrast outside of the esophagus, and there is no evidence of pneumomediastinum. The heart size is normal. There is no pericardial or pleural effusion. Limited images of the upper abdomen are unremarkable. No suspicious infiltrate or nodule identified. A calcified granuloma is present in the right middle lobe. IMPRESSION: No evidence of a leak of contrast outside of the esophagus, and no evidence of pneumomediastinum. Reviewed, Interpreted and Dictated by Hank Eden MD Transcribed by Sherry Santacruz Authenticated and [facility]
--- NOTE | 2023-08-16 13:55 | SUR.PHASEII ---
1341- patient to CT scan with radiology
--- NOTE | 2023-08-16 14:10 | SUR.PHASEII ---
1352- patient back from CT scan
== END 2023-08-16 15:17 | disposition home or self-care (01) ==
PROVIDERS: PCP Family Medicine; Visit Provider Surgery
PROC: 0DJ08ZZ Inspection of Upper Intestinal Tract, Via Natural or Artificial Opening Endoscopic (ICD-10-PCS; CPT 43235; principal; 2023-08-16 10:30)
DX: R07.9 Chest pain, unspecified (principal); R13.10 Dysphagia, unspecified; Z12.11 Encounter for screening for malignant neoplasm of colon; Z80.0 Family history of malignant neoplasm of digestive organs; K63.5 Polyp of colon; K21.9 Gastro-esophageal reflux disease without esophagitis; K44.9 Diaphragmatic hernia without obstruction or gangrene; K31.7 Polyp of stomach and duodenum; Z91.199 Patient's noncompliance with other medical treatment and regimen due to unspecified reason
CPT/HCPCS: 45378; 43239; 43249; 71250; C1726; J2704; J7120

== ENCOUNTER 2023-09-18 08:53 | Outpatient (CLI) | payer OTHER, SELFPAY ==
--- NOTE | 2023-09-18 08:53 | FL_ITS ---
FINAL REPORT CLINICAL HISTORY: nausea 1727.91 dap 3.34 fluoro FINDINGS: UPPER GI EXAM HISTORY: Dysphagia PROCEDURE: The patient ingested barium. Effervescent crystals were also administered. Spot and overhead films were obtained. Fluoro time: 3 minutes 34 seconds DAP: 1727.91 uGy.m2 FINDINGS: There is a small sliding-type hiatal hernia with a Schatzki ring. A small traction diverticulum is identified of the mid to distal esophagus. A 13 mm barium tablet does not pass beyond the Schatzki ring. No gastroesophageal reflux was demonstrated during the exam. Mild esophageal dysmotility was demonstrated during the exam. Rugal fold pattern of the stomach is unremarkable. The stomach empties appropriately. The duodenum is poorly distended. IMPRESSION: Small sliding-type hiatal hernia with Schatzki's ring. Duodenal diverticulum. Mild esophageal dysmotility. Films reviewed , interpreted and dictated by Dr. Bernstein. Transcribed by Ata Kuhn PA-C. Reviewed, Interpreted and Dictated by Barbara Bernstein MD Transcribed by WM Espino Authenticated and . [facility]
[2023-09-18] MEDS: BARIUM SULFATE(E-Z-AC);750ML BOTTLE 750 ML PO (09:18)
[2023-09-18] MEDS: BARIUM SULFATE (E-Z-HD 340GM);135ML BOTTLE 135 ML PO (09:18)
[2023-09-18] MEDS: E-Z-GASII EFFERVESCENT GRANULES;1PK 1 EACH PO (09:18)
== END 2023-09-18 23:59 | disposition home or self-care (01) ==
LOC: RAD 08:53
PROVIDERS: PCP Family Medicine; Visit Provider Surgery
DX: R11.0 Nausea (principal)
CPT/HCPCS: 74246

== ENCOUNTER 2023-11-15 10:14 | Day surgery (SDC) | payer OTHER, SELFPAY ==
[2023-11-14 09:50] VITALS: BMI 29.4
[2023-11-15 10:25] VITALS: BP 123/74; PULSE 81; RESP 16; TEMP 36.6; O2SAT 100
[2023-11-15 10:52] LABS: Urine Pregnancy, HCG Qual. Negative (Negative)
--- NOTE | 2023-11-15 10:56 | HMH.SCOPE ---
Procedure: Date: 11/15/23 Patient Date of :: 1975 Procedure Performed:: Esophagogastroduodenoscopy with biopsies and dilatation to 19 mm Indications:: Patient is a pleasant 47-year-old female who presents for follow-up upper endoscopy. She has had symptoms of dysphagia for some time. She had previous esophageal food impaction requiring emergent endoscopy on 08/04/2019. At that time dilatation was performed to 20 mm. I performed a EGD and colonoscopy on 08/12/2023 and she was found to have mucosal narrowing at the gastroesophageal junction, GE junction at 35 cm, mild diffuse nonerosive gastropathy, fundic gland polyps. Pathology revealed chronic peptic duodenitis, prepyloric biopsy revealed gastric antral type mucosa with reactive gastropathy, gastric biopsy revealed chronic gastritis with incomplete intestinal metaplasia , gastric polyp revealed fundic gland polyp, GE junction biopsies revealed reflux esophagitis. At that time she was dilated to 18 mm and had a minor mucosal tear . She did have a suboptimal preparation on colonoscopy and will need a follow-up colonoscopy but she wished to refrain from that at this time. I had her undergo upper GI as a follow-up. This revealed small sliding-type hiatal hernia with Schatzki's ring and duodenal diverticulum with findings consistent with esophageal dysmotility. Plan was to proceed with a follow-up upper endoscopy with possible additional dilatation. Her symptoms of dysphagia are improved but she does have some nausea occasionally. Of note, the patient does have gallstones and could require cholecystectomy. . Performing Provider:: Edward Martinez MD . Referring Provider:: Tez Rosario MD . Sedation:: MAC sedation . Procedure:: Patient history was obtained and appropriate physical examination was performed. Patient's medications and allergies were reviewed. Informed consent was obtained after explaining the benefits, alternatives, and risks of the procedure including, but not limited to, bleeding, perforation, missed lesions, and adverse reaction to anesthesia medications. Patient was transported to endoscopy procedure room. Patient was connected to monitoring devices. Throughout the procedure the patient's blood pressure, pulse, and oxygen saturations were monitored continuously. Patient identification and planned procedure were verified by the staff. Patient was positioned in lateral decubitus position. Olympus endoscope was inserted via the oropharynx. Esophagus was cannulated. There was some cricopharyngeal spasm. Endoscope was advanced and gastroesophageal junction was encountered at approximately 36 cm from the incisors. There were findings possibly consistent with Almaguer's esophagus and minor Schatzki's ring. Stomach was cannulated and insufflated. There was some diffuse gastropathy. There were a few probable fundic gland polyps. Retroflexion was performed which revealed poor visualization of the gastric cardia but it appears that there was a tiny hiatal hernia. Pylorus was traversed. Duodenum appeared normal. Endoscope was withdrawn into the gastric lumen and gastric antral biopsy was obtained. Biopsy was obtained of presumed fundic gland polyp. Endoscope was withdrawn into the distal esophagus. Biopsies were obtained at the gastroesophageal junction to rule out possible Almaguer's esophagus. Dilatation at the GE junction was performed to 19 mm using the TTS balloon dilator. Stomach was desufflated and the endoscope was withdrawn. . Findings:: Cricopharyngeal spasm Findings consistent with esophageal dysmotility Gastroesophageal junction at 36 cm Schatzki's ring Possible Almaguer's esophagus, biopsied Diffuse moderate gastropathy/gastritis Probable gastric fundic gland polyps . Recommendations:: Continue proton pump inhibitors. Follow-up on histopathology. Treat H. pylori if positive. She will need colonoscopy for screening purposes at s
--- NOTE | 2023-11-15 11:03 | EXP.ANES.CKL ---
[facility] Disclaimer: The information contained in this section may have been updated after the patient was seen, as this information can be updated by other users. Medical History Mild Acid Reflux Hemorrhoids Thyroid Nodule Sprain of left knee Esophageal foreign body URI (upper respiratory infection) Somnolence, daytime Palpitations Dyspnea Snoring Chest pain Surgical History History of colonoscopy History of esophagogastroduodenoscopy (EGD) History of tubal ligation Family History Father Cancer Stroke Hypertension Hyperlipidemia Mother Stroke Hypertension Hyperlipidemia Social History (Updated 11/15/23 @ 10:31 by Maxine Quinn RN) Smoking Status: Never smoker alcohol intake: never substance use type: denies use current occupational status: employed Travel in the last 8 weeks: None household members: spouse housing: house current occupation: [employer] current occupational exposures/hazards: No caffeine: Yes [facility] Anesthesia Checklist Patient Identification Patient Identification: Arm Band, Family and Verbal (Name & ) Structural Data Admitted From: Home Planned Operative Procedure/s: EGD Consent for Planned Operative Procedure(s) Verified: Yes Verified Documents: Surgical Consent and History and Physical NPO Status Verified Time NPO: 22:00 Chart Verification Results Verified: CBC, BMP and ECG Additional verifications Patient : No Anesthesia Reactions: No Cardiovascular Assessment Heart Sounds: S1 & S2 Pulse Rhythm: Irregular Peripheral Edema: No Airway Assessment Mallampati Score:: Class II C-Spine Mobility Assessed: Yes (FROM demonstrated) TMJ Mobility Assessed: Yes Dentition: Good Dentition (Nothing loose per pt.) Neurological Assessment Level of Consciousness: Awake, Alert, Appropriate and Follows Commands Hx Seizures: No Numbness or tingling in extremities: No Anesthesia Plan Anesthesia Risk discussed: Yes Anesthesia Plan: Verified ASA Class: II Anesthesia Type: MAC
[2023-11-15 11:28] VITALS: BP 116/74; PULSE 90; RESP 18; TEMP 36.6; O2SAT 93
--- NOTE | 2023-11-15 11:30 | EXP.ANES.I ---
[facility] Anesthesia Record Part I Anesthesia Record I Intake, IV Amount: 600 Hydration: Adequate Estimated blood loss (mL): 1 Urine output (mL): 0 Blood Products used (#): none Blood Pressure: 116/74 SaO2: 92 Pulse Rate: 90 Airway Patency: Patent Respiratory Rate: 16 Temperature: 97.8 F Patient is:: Awake (Talking) and Stable Stable to PACU at:: 11:33
[2023-11-15 11:31] VITALS: BP 116/74; PULSE 90; RESP 16; TEMP 36.6; O2SAT 92
[2023-11-15 11:38] VITALS: BP 136/69; PULSE 89; RESP 16; O2SAT 100
[2023-11-15 11:48] VITALS: BP 126/64; PULSE 83; RESP 16; O2SAT 98
[2023-11-15 11:58] VITALS: BP 127/66; PULSE 75; RESP 16; TEMP 36.6; O2SAT 100
== END 2023-11-15 12:00 | disposition home or self-care (01) ==
PROVIDERS: PCP Family Medicine; Visit Provider Surgery
PROC: 0DJ08ZZ Inspection of Upper Intestinal Tract, Via Natural or Artificial Opening Endoscopic (ICD-10-PCS; CPT 43235; principal; 2023-11-15 11:30)
DX: R13.10 Dysphagia, unspecified (principal); K31.9 Disease of stomach and duodenum, unspecified; K44.9 Diaphragmatic hernia without obstruction or gangrene; K22.2 Esophageal obstruction; K21.9 Gastro-esophageal reflux disease without esophagitis
CPT/HCPCS: 43239; 43249; 81025; C1726; J2704; J7120

== ENCOUNTER 2024-04-20 15:25 | Outpatient (CLI) | payer OTHER, SELFPAY ==
--- NOTE | 2024-04-20 15:25 | MM_ITS ---
PROCEDURE INFORMATION: Exam: MG Bilateral Screening 3D Mammography Exam date and time: 04/20/2024 3:07 PM Age: 48 years old Clinical indication: Screening examination; Additional info: Screening breast cancer TECHNIQUE: Imaging protocol: Bilateral Screening tomosynthesis and 2D mammography including computer-aided detection (CAD) when performed. COMPARISON: 1. MG MM DIG SCREENING MAMM BI W/CAD 04/08/2023 3:52 PM 2. MG MM DIG SCREENING MAMM BI W/CAD 04/05/2022 4:08 PM FINDINGS: MAMMOGRAPHY: Breast composition: There are scattered areas of fibroglandular density. Mass: None. Archite ctural distortion: None. Calcifications: No suspicious calcifications. Asymmetric density: None. Skin thickening: None. Axillary adenopathy: None. IMPRESSION: No mammographic evidence of malignancy. Annual screening is recommended unless otherwise clinically indicated. ASSESSMENT: BI-RADS Category 1: Negative.
== END 2024-04-20 23:59 | disposition home or self-care (01) ==
LOC: RAD 15:25
PROVIDERS: PCP Family Medicine; Visit Provider Family Medicine
DX: Z12.31 Encounter for screening mammogram for malignant neoplasm of breast (principal)
CPT/HCPCS: 77063; 77067

== ENCOUNTER 2025-03-03 12:20 | Day surgery (SDC) | payer OTHER, SELFPAY ==
--- NOTE | 2025-02-23 13:07 | EXP.HP ---
History of Present Illness *Admission Date: 03/03/25 *History of present illness: Mrs. Laws is a 49-year-old female who is here for diagnostic EGD. The patient reports bloating, moderate belching, intractable reflux and dysphagia. The bloating can sometimes result in difficulty getting a deep breath. She does get some epigastric abdominal discomfort. She does report early satiety and occasional nausea. She also has chronic constipation and feels as if she has incomplete bowel evacuation. The patient has fallen and has had several prior EGDs (Edward Martinez). The patient does have a history of dysphagia and prior esophageal food impaction requiring urgent endoscopy in July 2019. She also had an EGD and colonoscopy in July 2023 and had some mucosal narrowing at the GE junction (Edward Martinez MD). The patient did have gastropathy and fundic gland polyps. She had been on PPI therapy. She did have a barium swallow that showed a small sliding-type hiatal hernia and Schatzki's ring as well as some esophageal dysmotility. The patient also has had colonoscopies and her last colonoscopy was July 2023. At one point had hemorrhoidal banding. Her hemorrhoids recurred. The patient does state that she primarily eats meats/poultry and starches more so than green vegetables. The patient has tried and failed PPI therapy over many years which has always resulted in more bloating. The examination is deemed medically necessary for diagnostic EGD. The patient has been seen, interviewed and examined prior to the procedure by both myself and the anesthesia provider. [facility] Disclaimer: The information contained in this section may have been updated after the patient was seen, as this information can be updated by other users. Medical History Mild Acid Reflux Hemorrhoids Thyroid Nodule Sprain of left knee Esophageal foreign body URI (upper respiratory infection) Somnolence, daytime Palpitations Dyspnea Snoring Chest pain Surgical History History of colonoscopy History of esophagogastroduodenoscopy (EGD) History of tubal ligation Family History Father Cancer Stroke Hypertension Hyperlipidemia Mother Stroke Hypertension Hyperlipidemia Social History Smoking Status: Never smoker alcohol intake: never substance use type: denies use current occupational status: employed Travel in the last 8 weeks?: None household members: spouse housing: house current occupation: [employer] current occupational exposures/hazards: No caffeine: Yes Have you lived/traveled outside [place] in past 30 days?: No Contact w/someone who lives/traveled outside [place] past 30 days?: No Exposure to someone with infectious disease in past 14 days?: No Do you have a fever (greater than 100.4 F or 38 C)?: No Have you tested positive for COVID-19?: No Exposed to someone with COVID-19 in past 14 days?: No Do you have a sore throat?: No Do you have a cough?: No Do you have any weakness?: No Do you have any diarrhea?: No Are you experiencing any unusual bleeding?: No Do you have any muscle aches/pain?: No Do you have any abdominal pain?: No Are you experiencing loss of taste or smell?: No Other Medical History Have you received the Flu Vaccine for this season: No Have you received the Pneumonia Vaccine: No Review of Systems Review of Systems Review of systems (narrative): Negative *Cardiovascular Comments: Negative *Gastrointestinal Comments: Negative *Genitourinary Comments: Negative *Musculoskeletal Comments: Negative *Neurologic Comments: Negative Meds Home Medications and Allergies Home Medications ?Medication ?Instructions ?Recorded ?Confirmed ?Type prucalopride 2 mg tablet 2 mg PO DAILY #30 tabs 01/19/25 03/03/25 Rx New Prescriptions to Start Prescriptions: Allergies Allergy/AdvReac Type Severity Reaction Status Date / Time No Known Allergies Allergy Verified 03/03/25 12:57 Exam *Routine HEENT Exam Head: Present normocephalic Eye: Present EOMI and PERRL ENT: Present mucous membranes moist *Routine Neck Exam Neck: Present supple *Routine Respiratory Exam Respiratory: Present CTA bilaterally *Routine Cardiovascular Exam Cardiovascular: Present RRR *Routine Abdominal Exam Abdominal: Present soft and normoactive bowel sounds; Absent tenderness *Routine Rectal Exam Rectal:: deferred *Routine Genitalia Exam Genitalia:: deferred *Routine Extremities Exam Extremities: Absent cyanosis, clubbing or edema *Routine Skin Exam Skin: Present warm; Absent rash *Routine Neurological Exam Neurological: Present alert and oriented X3 Assessment and Plan *Assessment and plan (1) Belching: Status: Acute Category: Medical Code(s): R14.2 - Eructation (2) Early satiety: Status: Acute Category: Medical Code(s): R68.81 - Early satiety (3) Bloating: Status: Acute Category: Medical Code(s): R14.0 - Abdominal distension (gaseous) (4) Esophageal dysmotility: Status: Acute Category: Medical Code(s): K22.4 - Dyskinesia of esophagus (5) Schatzki's ring: Status: Acute Category: Medical Code(s): K22.2 - Esophageal obstruction (6) History of esophageal stricture: Status: Acute Category: Medical Code(s): Z87.19 - Personal history of other diseases of the digestive system (7) Dysphagia: Status: Acute Category: Medical Code(s): R13.10 - Dysphagia, unspecified Plan A/P: 1. Dysphagia with history of esophageal stricture/Schatzki's ring, esophageal dysmotility as well as bloating, fullness and early satiety is the preprocedural diagnosis. The patient will be anesthetized/sedated using MAC sedation. The patient has been seen and examined. Cardiac and lung assessment prior to the examination is stable. Proceed with planned diagnostic EGD.
[2025-03-02 12:19] VITALS: BMI 30.8
--- NOTE | 2025-03-03 06:31 | P.PCN_ITS ---
[facility] Procedure Note Date: 03/03/25 Time: 13:34 Procedure Note:: Upper Endoscopy Procedure Report: Esophagogastroduodenoscopy with cold biopsies and TTS balloon dilation Endoscopost: Edgardo Frost II, MD Referring Physician: Tez Rosario MD Date of Procedure: March 03, 2025 Equipment: Olympus GIF-1100 standard upper endoscope Sedation: MAC sedation Indications: Mrs. Laws is a 49-year-old female who is here for diagnostic EGD. The patient reports bloating, moderate belching, intractable reflux and dysphagia. The bloating can sometimes result in difficulty getting a deep breath. She does get some epigastric abdominal discomfort. She does report early satiety and occasional nausea. She also has chronic constipation and feels as if she has incomplete bowel evacuation. The patient has fallen and has had several prior EGDs (Edward Martinez). The patient does have a history of dysphagia and prior esophageal food impaction requiring urgent endoscopy in July 2019. She also had an EGD and colonoscopy in July 2023 and had some mucosal narrowing at the GE junction (Edward Martinez MD). The patient did have gastropathy and fundic gland polyps. She had been on PPI therapy. She did have a barium swallow that showed a small sliding-type hiatal hernia and Schatzki's ring as well as some esophageal dysmotility. The patient also has had colonoscopies and her last colonoscopy was July 2023. At one point had hemorrhoidal banding. Her hemorrhoids recurred. The patient does state that she primarily eats meats/poultry and starches more so than green vegetables. The patient has tried and failed PPI therapy over many years which has always resulted in more bloating. The examination is deemed medically necessary for diagnostic EGD. Procedure: Prior to the procedure, a history and physical exam was performed, and patient's medications and allergies were reviewed. The risks, benefits and alternatives of the sedation and procedure were discussed with the patient. All questions were answered and informed consent was obtained. The patient was brought to the procedure room. Patient identification and proposed procedure were verified by the physician and the nurse. The patient was placed in a left lateral decubitus position and the scope was passed under direct vision. Throughout the procedure, the patient's blood pressure, pulse, and oxygen saturations were monitored continuously. The upper GI endoscopy was accomplished without difficulty. The patient tolerated the procedure well. Findings: The scope was passed directly into the upper esophagus and advanced to the third portion of the duodenum. The post bulbar duodenum and duodenal bulb were normal with normal mucosa and conniventes. 2 cold biopsies were taken from the second portion of the duodenum for the disaccharidase assay. The scope was withdrawn through a normal duodenal bulb and pylorus into the stomach. There was very mild linear reactive gastropathy of the antrum and body of the stomach. The remainder of the body and fundus of the stomach were normal. Upon ret roflexion there was a very small sliding 1 to 2 cm hiatal hernia. Cold biopsies were taken from the lesser curvature of the stomach. There were a couple benign fundic gland polyps. The scope was then withdrawn into the esophagus. There was a distal esophageal fibrotic ring and some mild corrugation within the mid and distal esophagus as well as some esophageal stenosis. The findings were suggestive of eosinophilic esophagitis and cold biopsies were taken from the distal and proximal esophagus to rule out EOE. The distal fibrotic ring was approximately 12 to 13 mm and this was dilated to 19 mm and the entire esophagus was dilated to 19 mm with the TTS hydrostatic balloon. There was no evidence of Almaguer's. Impression: 1. Esophageal corrugation, mild stenosis and distal esophageal ring/fibrotic ring status post dilation to 19 mm (finding suggestive of eosinophilic esophagitis) 2. Mild linear reactive gastropathy 3. Small benign gastric fundic gland polyps x 2 Plan: I will follow-up the biopsies and initiate PPI therapy (omeprazole). I will also obtain RAST food allergy testing today. I will discuss the findings with the patient and family.
[2025-03-03 12:57] VITALS: BP 135/83; PULSE 84; RESP 17; TEMP 36.4; O2SAT 98
[2025-03-03] MEDS: LACTATED RINGERS 1000ML 1,000 ML 50 ML IV (13:01)
[2025-03-03 13:03] LABS: Urine Pregnancy, HCG Qual. Negative (Negative)
--- NOTE | 2025-03-03 13:17 | P.PNANES_ITS ---
[facility] Disclaimer: The information contained in this section may have been updated after the patient was seen, as this information can be updated by other users. Medical History Mild Acid Reflux Hemorrhoids Thyroid Nodule Sprain of left knee Esophageal foreign body URI (upper respiratory infection) Somnolence, daytime Palpitations Dyspnea Snoring Chest pain Surgical History History of colonoscopy History of esophagogastroduodenoscopy (EGD) History of tubal ligation Family History Father Cancer Stroke Hypertension Hyperlipidemia Mother Stroke Hypertension Hyperlipidemia Social History Smoking Status: Never smoker alcohol intake: never substance use type: denies use current occupational status: employed Travel in the last 8 weeks?: None household members: spouse housing: house current occupation: [employer] current occupational exposures/hazards: No caffeine: Yes Have you lived/traveled outside [place] in past 30 days?: No Contact w/someone who lives/traveled outside [place] past 30 days?: No Exposure to someone with infectious disease in past 14 days?: No Do you have a fever (greater than 100.4 F or 38 C)?: No Have you tested positive for COVID-19?: No Exposed to someone with COVID-19 in past 14 days?: No Do you have a sore throat?: No Do you have a cough?: No Do you have any weakness?: No Do you have any diarrhea?: No Are you experiencing any unusual bleeding?: No Do you have any muscle aches/pain?: No Do you have any abdominal pain?: No Are you experiencing loss of taste or smell?: No [facility] Anesthesia Checklist Patient Identification Patient Identification: Arm Band and Verbal (Name & ) Structural Data Admitted From: Home Planned Operative Procedure/s: EGD Consent for Planned Operative Procedure(s) Verified: Yes Verified Documents: Surgical Consent NPO Status Verified Time NPO: 00:00 Chart Verification Results Verified: HCG Additional verifications Anesthesia Reactions: No Airway Assessment Mallampati Score:: Class II C-Spine Mobility Assessed: Yes TMJ Mobility Assessed: Yes Dentition: Good Dentition Neurological Assessment Level of Consciousness: Awake, Alert and Appropriate Hx Seizures: No Numbness or tingling in extremities: No Anesthesia Plan Anesthesia Risk discussed: Yes Anesthesia Plan: Verified ASA Class: II Anesthesia Type: MAC
[2025-03-03 13:35] VITALS: BP 120/71; PULSE 92; RESP 16; TEMP 36.3; O2SAT 96
[2025-03-03 13:45] VITALS: BP 114/71; PULSE 97; RESP 17; TEMP 36.3; O2SAT 99
[2025-03-03 13:55] VITALS: BP 106/66; PULSE 84; RESP 19; TEMP 36.3; O2SAT 100
[2025-03-03 14:05] VITALS: BP 126/79; PULSE 78; RESP 18; TEMP 36.3; O2SAT 100
[2025-03-11 12:12] LABS: Interpretation Notes (.); Lactase 2.69 (>/= 14.0); Maltase 217.97 (>/= 110.0); Palatinase 4.04 (>/= 8.5); Reference Notes (.); Sucrase 33.63 (>/= 25.0)
== END 2025-03-03 14:12 | disposition home or self-care (01) ==
PROVIDERS: PCP Family Medicine; Visit Provider Internal Medicine Gastroenterology
PROC: 0DJ08ZZ Inspection of Upper Intestinal Tract, Via Natural or Artificial Opening Endoscopic (ICD-10-PCS; CPT 43239; principal; 2025-03-03 14:00)
DX: K21.00 Gastro-esophageal reflux disease with esophagitis, without bleeding (principal); K29.50 Unspecified chronic gastritis without bleeding; K22.2 Esophageal obstruction; K59.09 Other constipation; R15.0 Incomplete defecation; K44.9 Diaphragmatic hernia without obstruction or gangrene; K31.89 Other diseases of stomach and duodenum; K31.7 Polyp of stomach and duodenum; K64.9 Unspecified hemorrhoids; Z79.899 Other long term (current) drug therapy
CPT/HCPCS: 43239; 43249; 36415; 81025; 82657; 86003; 86008; C1726; J2003; J2704; J7120